=== PATIENT | male | born 1990 | race Caucasian/White ===

== ENCOUNTER 2017-06-16 11:03 | Emergency (ER) | payer SELFPAY ==
[2017-06-16 11:05] VITALS: BP 116/76; PULSE 54; RESP 17; TEMP 36.4; O2SAT 99; BMI 19.8
[2017-06-16] MEDS: 0.9% Normal Saline 1,000 ML 1000 ML IV (11:37)
[2017-06-16] MEDS: Ondansetron 4 MG/2 ML Vial IV (11:37)
[2017-06-16 11:42] LABS: Absolute Lymphocyte Count 1.78 X10^3/ul (0.83-4.51); Absolute Neutrophil Count 2.5 X10^3/uL (2.0-7.7); Basophil# 0.05 X10^3/uL; Eosinophil# 0.17 X10^3/uL; Eosinophils% 3.4 % (0-5); Hematocrit 42.4 % (40-54); Hemoglobin 14.5 g/dl (13.0-16.5); Lymphocyte # 1.78 X10^3/ul (4.0); Mean Corp Hgb Conc 34.2 g/gl (32-36); Mean Corpuscular Hgb 31.5 pg (27.0-32.0); Mean Corpuscular Volume 92.2 fL (80-94); Mean Platelet Vol. 9.8 fl (6.2-12.0); Monocyte# 0.49 X10^3/uL; Monocyte% 9.9 % (0-10); Neutrophil # 2.45 X10^3/uL (2.7-7.7); Neutrophil % 49.5 % (47-70); Platelet Count 198 K/mm3 (150-450); RBC Distribution Width CV 13.1 % (11.6-14.6); RBC Distribution Width SD 43.3 fl (35.1-43.9)
[2017-06-16 11:43] LABS: POSITIVE COUNT NO; POSITIVE DIFFERENTIAL NO; POSITIVE MORPHOLOGY NO
--- NOTE | 2017-06-16 11:45 | RAD_ITS ---
STUDY: X-RAY - ACUTE ABDOMINAL SERIES REASON FOR EXAM: Male, 27 years old. Nausea and vomiting. TECHNIQUE: Single view of the chest. Supine, and erect view(s) of the abdomen were obtained. COMPARISON: None. FINDINGS: The lungs are clear and expanded. Normal size heart. Normal mediastinum and elvira. Normal visualized pulmonary arteries. Normal visualized aortic arch and descending thoracic aorta. There is an abundance of fecal material throughout the colon. The soft tissue structures of the abdomen and pelvis are unremarkable. Normal visualized osseous structures. RAD/Acute Abdomen Inc Chest IMPRESSION: Moderate amount of fecal material is seen in the colon. Electronically Signed: Adi Porter MD at 12:43 EDT Tel [phone], Service support ,
[2017-06-16 11:54] LABS: ALB/GLOB Ratio 1.3 RATIO (0.9-2.4); AST(SGOT) 15 U/L (15-37); Alanine Aminotransfer ALT/SGPT 21 U/L (16-61); Albumin, Serum 4.4 g/dL (3.2-5.0); Alkaline Phosphatase 59 U/L (45-117); Anion Gap 6 (5-15); BUN 16 mg/dL (7-18); BUN/Creat Ratio 18.9 RATIO (10-20); Calcium,Total 8.8 mg/dL (8.5-10.1); Chloride 106 mmol/L (98-107); Creatinine, Serum 0.85 mg/dL (0.70-1.30); EST Glomerular Filtration Rate 117 mL/min (>60); Est Glom Filt Rate - Afr Amer 142 mL/min (>60); Estimated Creatinine Clearance 114.06 ml/min; Globulin 3.3 g/dL (2.2-4.2); Glucose 100 mg/dL (74-106); Protein, Total 7.7 g/dL (6.4-8.2); Sodium Level 141 mmol/L (136-145)
--- NOTE | 2017-06-16 12:43 | ED.DCSUM_ITS ---
- ER Visit Summary Date of Service: 06/16/17 Chief Complaint: Nausea vomiting and diarrhea History of Present Illness: The patient is a 27 M presenting for evaluation secondary nausea vomiting and diarrhea. Patient states that for approximately last week he has been having generalized malaise. Initially started with a cold that lasted about 6 days. Patient states however for the last 3 days he has been having nausea and vomiting that has been giving him difficulty with keeping down even liquids. He also states that he has been having loose watery diarrhea. Patient states that his emesis and nonbloody nonbilious, diarrhea is non-mucousy nonbloody. Denies any recent antibiotic use or any recent travel. Patient states that he has a mild amount of dyspnea as he feels like he has a tough time taking a deep breath. He endorses chills associated with this. Review of systems otherwise negative. Patient has no history of abdominal surgeries no past medical history. Physical Examination: Vital signs are within normal limits, patient is afebrile. General: Patient is well-nourished well-developed and in no acute distress. Head: Normocephalic, atraumatic Eyes: Pupils equal round and reactive bilaterally, extra occular motion intact bialterally, no evidence of scleral icterus or conjunctival pallor ENT: Moist mucous membranes Neck: Supple, no lymphadenopathy, no JVD, no meningismus CVS: Heart regular rate and rhythm, no murmurs, rubs or gallops, radial pulses 2 + bilaterally Resp: Respirations nondistressed, lung sounds clear bilaterally Abdomen: Soft, nontender, nondistended, no palpable masses, normal bowel sounds Back: Nontender Extremities: Nontender, atraumatic, active full range of motion, no peripheral edema Skin: warm, no rashes, no petechia Neuro: Alert and oriented x 4, CN 2-12 intact, no lateralizing neurological defecits Psyc: Normal affect Test Results: CBC unremarkable, CMP also unremarkable, abdominal x-ray with chest series shows a nonobstructive nonspecific bowel gas pattern and no evidence of acute cardiopulmonary pathology per my personal review Emergency Department Course and Treatment: Patient presented for evaluation secondary to nausea vomiting diarrhea generalized malaise and a mild amount shortness of breath. Given the patient's complaints shortness of breath and the fact that his symptoms of been going on for a week workup was obtained. He was given a liter normal saline Zofran. CBC chemistry liver profile and abdominal x-ray with chest were found to be negative. Patient's presentation at this point seems consistent with gastroenteritis will be discharged with supportive therapy. Patient was given a primary care doctor from the follow-up list Disposition: Discharge Impression: 1. Gastroenteritis This note was generated with [employer] dictation software. It may contain incorrect words, spelling, and punctuation that were not noted in review of the chart prior to signing ED Disposition - Plan for ED Patient: Disposition: Home or Assisted Living Chief Complaint: Nausea/Vomiting/Diarrhea Diagnosis: Gastroenteritis Instructions: ED Gastroenteritis Viral Prescriptions: Ondansetron [Zofran Odt] 4 mg PO Q8H PRN PRN #10 tab PRN Reason: Nausea Referrals: Juan Navarro DO [STAFF PHYSICIAN] - 3-5 Days if not improving
== END 2017-06-16 13:04 | disposition home or self-care (01) ==
PROVIDERS: Emergency Provider Emergency Medicine
DX: K52.9 Noninfective gastroenteritis and colitis, unspecified (principal); R06.00 Dyspnea, unspecified; Z72.0 Tobacco use
CPT/HCPCS: 74022; 80053; 85025; 96361; 96374; 99282; J7030; A4216; J2405

== ENCOUNTER 2017-07-26 09:52 | Emergency (ER) | payer SELFPAY ==
[2017-07-26 09:53] VITALS: BP 122/70; PULSE 64; RESP 16; TEMP 36.3; O2SAT 100; BMI 19.2
--- NOTE | 2017-07-26 10:06 | ED.VIS.GEN ---
History of Present Illness Chief Complaint: Bite Informant: Patient Onset: Today, Hours - 1 Context: Sudden Onset - trying to break up 2 of his dogs from fighting over food, got bit Timing: Continuous Quality: pain/sore Location: left hand, right thigh Current Severity: Severe Maximum Severity: Severe Worsened by: moving hand/fingers Relieved by: remaining still Associated Symptoms: no numb/tingling, no other injury Narrative: Last tetanus 6-7 years ago. Right-hand dominant. Past Medical History - Allergies and Home Meds Allergies/Adverse Reactions: Allergies No Known Allergies Allergy (Verified 07/26/17 09:56) Home Medications: Home Medications Medication Instructions Recorded Ondansetron [Zofran Odt] 4 mg PO Q8H PRN PRN #10 tab 06/16/17 Amox/Clavulanate Tablet [Augmentin 875 mg PO Q12H #10 tab 07/26/17 Tablet] Hydrocodone Bitart/Apap 5-325 1 tab PO Q4H PRN PRN 2 Days #10 tab 07/26/17 [Dinuba 5MG-325MG] Primary Care Physician: Care Physician,No Primary [Primary Care Provider] - Past Medical History: None Lives: Spouse/ Significant Other Smoking Status: Current every day smoker Drugs: None Review of Systems All systems negative except as indicated Musculoskeletal: Reports: Extremity Pain Skin: Reports: Wounds Physical Exam Vital Signs/Narrative: Vital Signs Temp Pulse Resp BP Pulse Ox 07/26/17 09:53 97.3 F L 64 16 122/70 H 100 Inital Vital Signs reviewed: Yes General: Well nourished, Well developed Head: Normocephalic, Atraumatic Extremities: Tenderness - diffuse left hand; anterior right thigh soft tissues at laceration Skin: Normal color, No rash, Trauma - Right thigh: 8 cm abrasion, approximately 1.5 cm of it is a partial-thickness laceration at the medial aspect. No subcutaneous tissues visible. Left hand: Multiple superficial-appearing puncture wounds from teeth, the deepest one appears to be in the thenar eminence where there is a 1.5 cm partial-thickness laceration with some minor bleeding that is nonpulsatile. All FDS/FDP tendon function intact. Full range of motion of thumb, limited at extremes due to pain, but able to oppose and perform all flexion/extension maneuvers without difficulty, including abduction/abduction. All extensors intact of fingers, including the long finger, where there is a puncture close to the extensor tendon. No tendons are able to be seen within the wound. All of the wounds are very small. Neurological: Alert, Oriented x3, Cranial nerves II-XII grossly intact, Normal Strength, Normal Sensation, Normal Gait Psychological: Normal affect Diagnostic/Tx/Re-eval - Medical Decision Making He has no medication allergies, will be placed on Augmentin for infection prophylaxis given his hand involvement with puncture wounds. They will be cleansed thoroughly and dressed with bacitracin here. I do not think any of these wounds, including the thenar eminence of the left hand or the right thigh, need repair. It will be very reasonable to let these heal by secondary intent. Especially because repairing primarily will increase the chance of infection. Discussed thoroughly with the patient and his significant other, they are comfortable with that plan. I do not think he needs a tetanus update having had one 6 or 7 years ago. ED Disposition - Plan for ED Patient: Disposition: Home or Assisted Living Chief Complaint: Bite Diagnosis: Dog bite of multiple sites of left hand and fingers, Dog bite of right thigh without complication Instructions: ED Bite Dog Prescriptions: Hydrocodone Bitart/Apap 5-325 [Dinuba 5MG-325MG] 1 tab PO Q4H PRN PRN 2 Days #10 tab PRN Reason: Pain Amox/Clavulanate Tablet [Augmentin Tablet] 875 mg PO Q12H #10 tab Referrals: Blayne Pablo MD [STAFF PHYSICIAN] - 3-5 Days if not improving ()
--- NOTE | 2017-07-26 10:15 | ED.DCSUM_ITS ---
History of Present Illness Chief Complaint: Bite Informant: Patient Onset: Today, Hours - 1 Context: Sudden Onset - trying to break up 2 of his dogs from fighting over food , got bit Timing: Continuous Quality: pain/sore Location: left hand, right thigh Current Severity: Severe Maximum Severity: Severe Worsened by: moving hand/fingers Relieved by: remaining still Associated Symptoms: no numb/tingling, no other injury Narrative: Last tetanus 6-7 years ago. Right-hand dominant. Past Medical History - Allergies and Home Meds Allergies/Adverse Reactions: Allergies No Known Allergies Allergy (Verified 07/26/17 09:56) Home Medications: Home Medications Medication Instructions Recorded Ondansetron [Zofran Odt] 4 mg PO Q8H PRN PRN #10 tab 06/16/17 Amox/Clavulanate Tablet [Augmentin 875 mg PO Q12H #10 tab 07/26/17 Tablet] Hydrocodone Bitart/Apap 5-325 1 tab PO Q4H PRN PRN 2 Days #10 tab 07/26/17 [Sterling 5MG-325MG] Primary Care Physician: Care Physician,No Primary [Primary Care Provider] - Past Medical History: None Lives: Spouse/ Significant Other Smoking Status: Current every day smoker Drugs: None Review of Systems All systems negative except as indicated Musculoskeletal: Reports: Extremity Pain Skin: Reports: Wounds Physical Exam Vital Signs/Narrative: Vital Signs Temp Pulse Resp BP Pulse Ox 07/26/17 09:53 97.3 F L 64 16 122/70 H 100 Inital Vital Signs reviewed: Yes General: Well nourished, Well developed Head: Normocephalic, Atraumatic Extremities: Tenderness - diffuse left hand; anterior right thigh soft tissues at laceration Skin: Normal color, No rash, Trauma - Right thigh: 8 cm abrasion, approximately 1.5 cm of it is a partial-thickness laceration at the medial aspect. No subcutaneous tissues visible. Left hand: Multiple superficial-appearing puncture wounds from teeth, the deepest one appears to be in the thenar eminence where there is a 1.5 cm partial-thickness laceration with some minor bleeding that is nonpulsatile. All FDS/FDP tendon function intact. Full range of motion of thumb, limited at extremes due to pain, but able to oppose and perform all flexion/extension maneuvers without difficulty, including abduction/ abduction. All extensors intact of fingers, including the long finger, where there is a puncture close to the extensor tendon. No tendons are able to be seen within the wound. All of the wounds are very small. Neurological: Alert, Oriented x3, Cranial nerves II-XII grossly intact, Normal Strength, Normal Sensation, Normal Gait Psychological: Normal affect Diagnostic/Tx/Re-eval - Medical Decision Making He has no medication allergies, will be placed on Augmentin for infection prophylaxis given his hand involvement with puncture wounds. They will be cleansed thoroughly and dressed with bacitracin here. I do not think any of these wounds, including the thenar eminence of the left hand or the right thigh , need repair. It will be very reasonable to let these heal by secondary intent. Especially because repairing primarily will increase the chance of infection. Discussed thoroughly with the patient and his significant other, they are comfortable with that plan. I do not think he needs a tetanus update having had one 6 or 7 years ago. ED Disposition - Plan for ED Patient: Disposition: Home or Assisted Living Chief Complaint: Bite Diagnosis: Dog bite of multiple sites of left hand and fingers, Dog bite of right thigh without complication Instructions: ED Bite Dog Prescriptions: Hydrocodone Bitart/Apap 5-325 [Sterling 5MG-325MG] 1 tab PO Q4H PRN PRN 2 Days #10 tab PRN Reason: Pain Amox/Clavulanate Tablet [Augmentin Tablet] 875 mg PO Q12H #10 tab Referrals: Blayne Pablo MD [STAFF PHYSICIAN] - 3-5 Days if not improving ()
[2017-07-26] MEDS: HYDROcodone Bitartrate/Apap 5/325 Tablet PO (10:21)
[2017-07-26 11:02] VITALS: BP 124/77; PULSE 68; RESP 15; O2SAT 99
== END 2017-07-26 11:03 | disposition home or self-care (01) ==
PROVIDERS: Emergency Provider Emergency Medicine
DX: S60.572A Other superficial bite of hand of left hand, initial encounter (principal); S60.479A Other superficial bite of unspecified finger, initial encounter; S70.371A Other superficial bite of right thigh, initial encounter; W54.0XXA Bitten by dog, initial encounter; Y93.9 Activity, unspecified; Y92.9 Unspecified place or not applicable
CPT/HCPCS: 99283

== ENCOUNTER 2020-04-28 11:38 | Emergency (ER) | payer MEDICAID, SELFPAY ==
[2020-04-28 11:40] VITALS: BP 118/61; PULSE 54; RESP 16; TEMP 37; O2SAT 97; BMI 19.9
--- NOTE | 2020-04-28 12:00 | RAD_ITS ---
STUDY: X-RAY CHEST REASON FOR EXAM: Male, 29 years old. COUGH, FEVER STARTED THIS MORNING -- PT''S FATHER JUST YESTERDAY AND HAD COVID TECHNIQUE: Single AP portable view of the chest. COMPARISON: 06/16/2017 FINDINGS: The lungs are clear and expanded. There is no demonstrated pleural abnormality. Normal size heart. Normal mediastinum and elvira. Normal visualized pulmonary arteries. Normal visualized aortic arch and descending thoracic aorta. Normal visualized thoracic spine. Normal visualized ribs, clavicles, and shoulders. There is no demonstrated abnormality of the visualized soft tissue structures of the upper abdomen. RAD/Chest 1 View (Portable) IMPRESSION: Normal x-ray examination of the chest. Electronically Signed: Porfirio Angelo MD at 12:45 EST Tel , Service support ,
[2020-04-28] MEDS: Ondansetron ODT 4 MG Tablet PO (12:14)
[2020-04-28 12:16] VITALS: O2SAT 100
--- NOTE | 2020-04-28 12:42 | ED.VISSUMM ---
- ER Visit Summary Date of Service: 04/28/20 Chief Complaint: Fever, cough History of Present Illness: The patient is a 29 M with no primary care physician. He reports that his father from [place] yesterday. He had been at home with the patient and ill for quite some time prior to coming to the hospital. Patient was feeling well until today when he developed fever, chills, cold sweats. Reports that he has a cough that comes and goes. He has shortness of breath with coughing only. He is not short of breath diverticulation. Has been nausea and had dry heaves. He has a headache is 4-10 severity that he describes as sharp. Physical Examination: Vitals: Stable. Afebrile. General: Well-nourished and well-developed. Head: Normocephalic atraumatic. Neck: Supple, no lymphadenopathy. No JVD. Nontender. Cardiovascular: Regular rate and rhythm. No murmurs. Respiratory: No respiratory distress. Clear to auscultation bilaterally. Abdominal: Soft, nontender, nondistended, normal bowel sounds. No guarding, rebound, or peritoneal signs. Back: Nontender. Extremities: Nontender, no edema. Skin: Normal color, no rash. Neurologic: Alert and oriented ?3. Cranial nerves II through XII are intact. Normal strength and sensation. Psych: Normal affect. Test Results: Chest x-ray shows no acute disease. COVID-19 rapid antigen is negative. Emergency Department Course and Treatment: Patient was treated with Zofran. He refused an IV. Treatment Plan: Patient will be discharged with Covid precautions I suspect that this is a false negative or it is too early to be positive. He is instructed to quarantine for the next 2 weeks. Instructed to follow-up with Andrzej Ceja in 10 to 14 days if not improving. Return to the emergency department for any worsening symptoms. Disposition: To home in improved and stable condition. Impression: 1. URI. 2. COVID-19 exposure. This note was generated with [employer] dictation software. It may contain incorrect words, spelling, and punctuation that were not noted in review of the chart prior to signing ED Disposition - Plan for ED Patient: Instructions: Preventing the Spread of Infection Understanding Isolation Procedures, Coronavirus Disease 2019 (COVID-19): Caring for Yourself or Others Prescriptions: Ondansetron [Zofran Odt] 4 mg PO Q8H PRN PRN #10 tablet PRN Reason: Nausea Referrals: Juan Hays MD [STAFF PHYSICIAN] - 10-14 Days if not better
== END 2020-04-28 13:08 | disposition home or self-care (01) ==
LOC: ED 13:03
PROVIDERS: Emergency Provider Emergency Medicine; PCP Family Medicine
DX: J06.9 Acute upper respiratory infection, unspecified (principal); Z20.822 Contact with and (suspected) exposure to COVID-19; F17.200 Nicotine dependence, unspecified, uncomplicated
CPT/HCPCS: 71045; 87426; 99283

== ENCOUNTER 2020-07-06 12:08 | Emergency (ER) | payer MEDICAID, SELFPAY ==
[2020-07-06 12:09] VITALS: BP 109/71; PULSE 81; RESP 14; TEMP 35.9; O2SAT 99; BMI 31.4
--- NOTE | 2020-07-06 12:18 | RAD_ITS ---
STUDY: X-RAY - LEFT ANKLE REASON FOR EXAM: Male, 30 years old. Trauma. Pain. TECHNIQUE: 3 view(s) of the ankle. COMPARISON: None. FINDINGS: There is no evidence of fracture or dislocation. There are no significant degenerative changes. There are no radiodense foreign bodies. RAD/Ankle min 3 Views IMPRESSION: No fracture or dislocation. Electronically Signed: Dallas De La Vega MD at 13:07 EDT Tel , Service support ,
--- NOTE | 2020-07-06 12:18 | ED.VIS.GEN ---
History of Present Illness Chief Complaint: Lower Extremity Injury Informant: Patient Onset: Yesterday Context: Sudden Onset Timing: Continuous Quality: Pain Location: Medial left ankle Current Severity: Mild Maximum Severity: Severe Worsened by: Weightbearing Relieved by: Elevation and rest Associated Symptoms: None Narrative: Patient is a 30-year-old male who presents with injury to his left ankle. He sustained blunt trauma against a weight yesterday. He states he had pain instantaneously. He now has pain if he bears weight. He localizes the pain to the medial malleolus left ankle. He believes he fractured the ankle when he was in high school. He denies paresthesia, anesthesia or motor weakness. Prior similar symptoms: No Recent Illness/Hospitalization: No - Past Medical History (1) No significant past medical history Status: Acute Past Medical History - Allergies and Home Meds Allergies/Adverse Reactions: Allergies No Known Allergies Allergy (Verified 07/06/20 12:09) Primary Care Physician: Juan Hays MD [Primary Care Provider] - Surgical History: no surgical history Lives: Spouse/ Significant Other Smoking Status: Current every day smoker Alcohol: Rare Drugs: None Review of Systems Musculoskeletal: Reports: Swelling, Extremity Pain. Denies: Myalgias, Arthralgias Skin: Denies: Rash, Wounds Neurological: Denies: Weakness, Parasthesia, Numbness Hematologic: Denies: Easy bruising, Easy bleeding Physical Exam Vital Signs/Narrative: Vital Signs Temp Pulse Resp BP Pulse Ox 07/06/20 12:09 96.7 F L 81 14 109/71 99 Inital Vital Signs reviewed: Yes General: Well nourished, Well developed, No Acute Distress Head: Normocephalic, Atraumatic Eyes: Perrl, EOMI Neck: Supple, Nontender Cardiovascular: Regular rate, Regular rhythm Respiratory: No distress Extremities: No edema, Tenderness - There is point tenderness over the medial malleolus. The left medial malleolus is significantly larger than the right. DP and PT pulse are palpable. There is no laxity with drawer testing.. Negative for: Nontender Skin: Normal color, No rash, Trauma Neurological: Alert, Oriented x3, Cranial nerves II-XII grossly intact, Normal Strength, Normal Sensation. Negative for: Normal Gait Psychological: Normal affect Diagnostic/Tx/Re-eval Chest X-Ray - ED: Read by ED Physician, Normal, Bony Structures, - - Three-view x-ray of the ankle was obtained and there is no fracture, subluxation dislocation or foreign body. There is no asymmetry of the joint spaces and specifically the mortise. 07/06/20 12:18 Ankle min 3 Views [RAD] Stat - Medical Decision Making X-ray of the ankle was obtained to evaluate for fracture versus contusion. ED Disposition - Plan for ED Patient: Disposition: Home or Assisted Living Diagnosis: Contusion of left ankle, initial encounter Instructions: ED Contusion, Lower Extremity Prescriptions: Naproxen [Naprosyn] 500 mg PO BID #14 tablet Prescription Printed Referrals: Juan Hays MD [Primary Care Provider] - 1 Week if not improving
[2020-07-06 12:40] VITALS: RESP 17
== END 2020-07-06 12:40 | disposition home or self-care (01) ==
PROVIDERS: Emergency Provider Emergency Medicine; PCP Family Medicine
DX: S90.02XA Contusion of left ankle, initial encounter (principal); W22.8XXA Striking against or struck by other objects, initial encounter; Y93.9 Activity, unspecified; Y92.9 Unspecified place or not applicable; F17.200 Nicotine dependence, unspecified, uncomplicated
CPT/HCPCS: 73610; 99282

== ENCOUNTER 2021-04-01 16:43 | Emergency (ER) | payer MEDICAID, SELFPAY ==
[2021-04-01 16:43] VITALS: BP 110/75; PULSE 76; RESP 16; TEMP 36.3; O2SAT 99; BMI 19.2
--- NOTE | 2021-04-01 17:01 | EX.ED.DYSGE1 ---
HPI History of Present Illness Chief Complaint: General Illness Detail of Chief Complaint: Not feeling well since yesterday Informant: patient Narrative Narrative: Patient presents to the emergency department complaint not feeling well since yesterday. He developed some mild congestion and a headache. Had a low-grade fever up to 101. Today he feels somewhat lightheaded especially this morning when he first stood up from bed. Complains of some mild body aches. Patient is concerned because he had COVID 9 months ago and his father of COVID and the symptoms remind him of when he had COVID last. Patient states that also his girlfriend and son with similar symptoms. Patient states that people of called off with COVID from work. Prior similar symptoms: Yes PFSH PFSH Medical History no medical history Home Medications ferrous sulfate, dried 160 mg PO DAILY 04/28/20 [History Last Taken Unknown] glucosamine HCl 500 mg PO DAILY 04/28/20 [History Last Taken Unknown] ondansetron 4 mg PO Q8H PRN PRN #10 tab 04/28/20 [Rx Last Taken Unknown] potassium 99 mg PO DAILY 04/28/20 [History Last Taken Unknown] naproxen 500 mg PO BID #14 tablet 07/06/20 [Rx Last Taken Unknown] Allergy/AdvReac Type Severity Reaction Status Date / Time No Known Allergies Allergy Verified 07/06/20 12:09 Social History Smoking Status: Current every day smoker tobacco type: cigarettes ROS ROS ED Constitutional Constitutional ED: Reports systems reviewed and no addt'l complaints, except as documented; Denies body ache(s), change in weight or chills Eyes Eyes: Denies acute decrease in peripheral vision, change in vision, double vision or loss of vision ENT ENT ED: Reports none; Denies ear pain, lip swelling, loss taste/smell, neck pain, otalgia or sore throat Cardiovascular Cardiovascular: Reports none; Denies abdominal pain, chest pain with activity, leg edema, lightheadedness, palpitations, rapid heart rate or syncope Respiratory/Chest Respiratory/Chest: Reports cough Gastrointestinal Gastrointestinal: Reports none; Denies abdominal pain, change in stool character, diarrhea, hematemesis, hematochezia, melena, rectal bleeding or vomiting Genitourinary Genitourinary ED: Reports none; Denies abdominal discomfort, anuria, dysuria, genital pain or polyuria Musculoskeletal Musculoskeletal: Reports myalgias Integumentary Reports none; Denies abscess or rash Neurologic Neurologic: Reports headache(s) Psychiatric Psychiatric: Reports systems reviewed and no addt'l complaints, except as documented and none; Denies behavioral changes, confusion, difficulty concentrating, hallucinations, suicidal ideation, tactile hallucinations or visual hallucinations Endocrine Endocrinology: Denies none, cold intolerance, excessive sweating, fatigue or heat intolerance Hematologic/Lymphatic Hematologic/Lymphatic: Reports none; Denies anemia, easy bleeding or easy bruising Allergic/Immunologic Allergic/Immunologic ED: Denies as per HPI, none, lip swelling, mouth swelling, throat swelling, tongue swelling or hives EXAM Physical Exam Const Vital Signs: 04/01/21 16:43 04/01/21 17:10 Temperature 97.3 F L 97.3 F L Temperature Source Temporal Temporal Pulse Rate 76 76 Respiratory Rate 16 16 Respiratory Effort Normal Non-Labored Blood Pressure 110/75 110/75 Blood Pressure Mean 86 86 Pulse Ox 99 99 Oxygen Delivery Method Room Air Room Air Positive well nourished and well developed General Appearance ED: well developed and NAD HEENT Reports TM's clear and moist mucous membranes normocephalic and atraumatic; Negative for trauma or tenderness Tympanic Membrane ED: Yes TM's clear Eyes PERRL and EOMs intact bilaterally General Eye ED: Negative for pale conjunctiva or scleral icterus Neck no lymphadenopathy, supple and no JVD General: Negative for tenderness Chest Wall inspection of chest normal and palpation of chest normal Chest: Negative for tenderness Resp normal respiratory effort and clear to auscultation bilaterally Effort and Inspection: Negative for respiratory distress or pain with movement Auscultation: Negative for rhonchi, wheezes or diminished lung sounds Cardio regular rate, regular rhythm, S1 normal heart sound, S2 normal heart sound and no murmurs Peripheral Pulses: pulses 2+ throughout GI normal to inspection, nondistended, normoactive bowel sounds, soft to palpation, non-tender, non-distended and no masses Back/Spine no CVA tenderness and no thoracic nor lumbar tenderness Extremity normal to inspection General Extremety ED: Negative for edema General Extremity: Negative for edema Neuro oriented x3, CN's II-XII intact bilaterally, no sensory deficits noted and gait normal Sensorium / Orientation: awake, alert, oriented to person, oriented to place and oriented to time Motor Exam: strength 5/5 throughout and strength abnormal Psych mental status grossly normal Skin no rashes or lesions noted and no wounds MDM MDM MDM Narrative Medical decision making narrative: Rapid COVID test was negative. I discussed with patient that given that he is only had symptoms for less than 24 hours and the Omicron variant is dominant he may not show a positive test for up to 2 to 3 days after symptom onset. I recommended that he test himself again in 2 to 3 days. Patient advised to return if increasing shortness of breath or condition should worsen anyway. Lab Data Attestation: I reviewed the patient's lab results. Discharge Plan Triage Chief Complaint: General Illness ED Provider: Se Mata Dx/Rx/DC Orders Clinical Impression: Viral URI Instructions: ED URI, Viral, No Abx (Adult) Prescriptions: No Action potassium 99 MG tablet 99 mg PO DAILY RF: 0 ferrous sulfate, dried 160 MG tablet extended release 160 mg PO DAILY RF: 0 glucosamine HCl 500 MG tablet 500 mg PO DAILY RF: 0 ondansetron 4 MG tablet 4 mg PO Q8H PRN PRN (Reason: Nausea) Qty: 10 RF: 0 naproxen 500 MG tablet 500 mg PO BID Qty: 14 RF: 0 Primary Care Provider: Juan Hays Referrals: Juan Hays MD [Primary Care Provider] - 5-7 Days Disposition Disposition: Home, Self Care
[2021-04-01 17:10] VITALS: BP 110/75; PULSE 76; RESP 16; TEMP 36.3; O2SAT 99
[2021-04-01 18:28] VITALS: TEMP 37.1; O2SAT 98
== END 2021-04-01 18:29 | disposition home or self-care (01) ==
PROVIDERS: Emergency Provider Emergency Medicine; PCP Family Medicine; Visit Provider Emergency Medicine
DX: J06.9 Acute upper respiratory infection, unspecified (principal); F17.210 Nicotine dependence, cigarettes, uncomplicated
CPT/HCPCS: 87426; 99282

== ENCOUNTER 2021-08-13 18:10 | Emergency (ER) | payer MEDICAID, SELFPAY ==
[2021-08-13 18:11] VITALS: BP 132/84; PULSE 94; RESP 18; TEMP 36.6; O2SAT 98; BMI 19.2
--- NOTE | 2021-08-13 18:29 | ED.VIS.DENTA ---
HPI History of Present Illness Chief Complaint: Dental Narrative Narrative: Patient presents with right upper second molar pain, he chipped his tooth about a month ago he has an appointment with dentistry in 2 weeks however he feels like there is some increased swelling and increased pain. No fevers chills. No difficulty swallowing. PFSH PFSH Medical History Alcohol abuse Former smoker Home Medications ferrous sulfate, dried 160 mg PO DAILY 04/28/20 [History Last Taken Unknown] glucosamine HCl 500 mg PO DAILY 04/28/20 [History Last Taken Unknown] ondansetron 4 mg PO Q8H PRN PRN #10 tab 04/28/20 [Rx Last Taken Unknown] potassium 99 mg PO DAILY 04/28/20 [History Last Taken Unknown] naproxen 500 mg PO BID #14 tablet 07/06/20 [Rx Last Taken Unknown] naproxen [Naprosyn] 500 mg PO BID #20 tab 08/13/21 [Rx Last Taken Unknown] penicillin V potassium 500 mg PO 4X/DAY #20 tab 08/13/21 [Rx Last Taken Unknown] Allergy/AdvReac Type Severity Reaction Status Date / Time No Known Allergies Allergy Verified 08/13/21 18:12 Surgical History History of tonsillectomy and adenoidectomy Social History Smoking Status: Current every day smoker tobacco type: cigarettes ROS ROS ED ROS Narrative Past medical history: Reviewed Medications: Reviewed Social history: Noncontributory Review of systems: All systems negative except as indicated General: No fever Eyes: No visual changes ENT: No upper airway congestion, normal voice Dental: As in HPI Neck: No neck pain Cardiovascular: No chest pain Respiratory: No shortness of breath or cough EXAM Physical Exam Narrative Exam Narrative: Physical exam General: Well nourished, Well developed, No Acute Distress Head: Normocephalic, Atraumatic Eyes: Conjunctiva not pale ENT: Moist mucous membranes Dental: There is a fracture of the right upper second molar, there is no periapical abscess. There is some swelling of the face. Normal soft palate and normal uvula and a normal voice. Neck: Supple, Nontender, No lymphadenopathy Cardiovascular: Regular rate, Regular rhythm Respiratory: No distress, CTA bilaterally Skin: Normal color, No rash Neurological: No facial droop Const Vital Signs: 08/13/21 18:11 Temperature 97.8 F Temperature Source Temporal Pulse Rate 94 Respiratory Rate 18 Blood Pressure 132/84 H Blood Pressure Mean 100 Pulse Ox 98 Oxygen Delivery Method Room Air MDM MDM MDM Narrative Medical decision making narrative: Patient does not have an abscess but he may have some infection since there is some swelling. We will treat with antibiotics. He has an appointment with dentistry and he can follow-up Discharge Plan Triage Chief Complaint: Dental ED Provider: Montrell Jasmine Dx/Rx/DC Orders Clinical Impression: Pain, dental, Dental caries Instructions: ED Dental Pain Prescriptions: New naproxen [Naprosyn] 500 mg tablet 500 mg PO BID Qty: 20 RF: 0 penicillin V potassium 500 mg tablet 500 mg PO 4X/DAY Qty: 20 RF: 0 No Action potassium 99 MG tablet 99 mg PO DAILY RF: 0 ferrous sulfate, dried 160 MG tablet extended release 160 mg PO DAILY RF: 0 glucosamine HCl 500 MG tablet 500 mg PO DAILY RF: 0 ondansetron 4 MG tablet 4 mg PO Q8H PRN PRN (Reason: Nausea) Qty: 10 RF: 0 naproxen 500 MG tablet 500 mg PO BID Qty: 14 RF: 0 Primary Care Provider: Juan Hays Referrals: Juan Hays MD [Primary Care Provider] - 2 Days Disposition Disposition: Home, Self Care
== END 2021-08-13 18:42 | disposition home or self-care (01) ==
PROVIDERS: Emergency Provider Emergency Medicine; PCP Family Medicine; Visit Provider Emergency Medicine
DX: S02.5XXA Fracture of tooth (traumatic), initial encounter for closed fracture (principal); K02.9 Dental caries, unspecified; F17.210 Nicotine dependence, cigarettes, uncomplicated; X58.XXXA Exposure to other specified factors, initial encounter

== ENCOUNTER 2021-08-29 15:08 | Emergency (ER) | payer MEDICAID, SELFPAY ==
[2021-08-29 15:09] VITALS: BP 119/72; PULSE 65; RESP 15; TEMP 36.7; O2SAT 97; BMI 19.2
--- NOTE | 2021-08-29 15:15 | RAD_ITS ---
STUDY: X-RAY - LEFT FOOT CLINICAL: Male, 31 years old. 5TH TOE INJURY TECHNIQUE: 3 view(s) of the foot. COMPARISON: None. FINDINGS: Normal talus, calcaneus, and tarsal bones. Normal visualized subtalar, talonavicular, calcaneocuboid, tarsal and tarsometatarsal articulations. Normal metatarsi. Normal metatarsophalangeal joint of the great toe. Normal tibial and fibular sesamoid bones. Normal interphalangeal joint of the great toe. Normal phalanges of the great toe. Normal second through fifth metatarsophalangeal joints. Normal interphalangeal joints and phalanges of the lesser toes. The soft tissue structures are unremarkable. RAD/Foot min 3 Views IMPRESSION: Normal x-ray examination of the foot. Electronically Signed: Adi Porter MD at 15:33 EDT ,
--- NOTE | 2021-08-29 16:49 | ED.VIS.LOWEX ---
HPI History of Present Illness Chief Complaint: Lower Extremity Injury Informant: patient Narrative Narrative: 31-year-old male states that he was walking down the hallway and accidentally kicked the wall with his left foot. He notes a large amount of ecchymosis and discomfort in the left fifth toe. He denies any other injuries. PFSH PFSH Medical History Alcohol abuse Former smoker Home Medications naproxen 500 mg tablet (Naprosyn) 500 mg PO BID #20 tabs 08/13/21 [Rx Last Taken Unknown] penicillin V potassium 500 mg tablet 500 mg PO 4X/DAY #20 tabs 08/13/21 [Rx Last Taken Unknown] hydrocodone-acetaminophen 5-325mg 5mg-325mg 1 tab PO Q6H PRN PRN Pain 3 days #10 TABLETS 08/29/21 [Rx Last Taken Unknown] Allergy/AdvReac Type Severity Reaction Status Date / Time No Known Allergies Allergy Verified 08/29/21 15:11 Surgical History History of tonsillectomy and adenoidectomy Social History Smoking Status: Former smoker ROS ROS ED Constitutional Constitutional ED: Denies chills or weight loss Eyes Eyes: Denies change in vision or diplopia ENT ENT ED: Denies ear pain, rhinorrhea or sore throat Cardiovascular Cardiovascular: Denies chest pain, orthopnea, palpitations or racing heartbeat Respiratory/Chest Respiratory/Chest: Denies cough, dyspnea or orthopnea Gastrointestinal Gastrointestinal: Denies abdominal pain, diarrhea, nausea or vomiting Genitourinary Genitourinary ED: Denies dysuria, hematuria or urinary frequency Musculoskeletal Musculoskeletal: Reports other Details: See HPI ; Denies arthralgias or myalgias Integumentary Denies abscess or rash Neurologic Neurologic: Denies headache(s) or weakness Psychiatric Psychiatric: Denies anxiety, depression, suicidal ideation or suicidal thoughts Endocrine Endocrinology: Denies polydipsia, polyphagia or polyuria Allergic/Immunologic Allergic/Immunologic ED: Denies mouth swelling, tongue swelling or urticaria EXAM Physical Exam Const Vital Signs: 08/29/21 15:09 Temperature 98.1 F Temperature Source Temporal Pulse Rate 65 Respiratory Rate 15 Blood Pressure 119/72 Blood Pressure Mean 87 Pulse Ox 97 Oxygen Delivery Method Room Air Positive well nourished and well developed General Appearance ED: well developed HEENT Reports normocephalic, head/scalp atraumatic and moist mucous membranes Eyes PERRL and EOMs intact bilaterally Neck no lymphadenopathy, supple and no JVD Resp normal respiratory effort and clear to auscultation bilaterally Cardio regular rate, regular rhythm and no murmurs GI normal to inspection, nondistended, normoactive bowel sounds and non-tender Palpation: soft Back/Spine no CVA tenderness and normal ROM Extremity Extremity Narrative: There is a significant a purple ecchymosis of the left fifth toe and onto the dorsum of the left foot. Tender to palpation. No gross deformity General Extremety ED: Negative for edema General Extremity: Negative for edema Neuro oriented x3 and CN's II-XII intact bilaterally Sensorium / Orientation: alert Motor Exam: strength 5/5 throughout Psych mental status grossly normal Mood & Affect: Negative for depressed or tearful Skin no rashes or lesions noted and no wounds MDM MDM MDM Narrative Medical decision making narrative: My interpretation of the plain films of the left foot is a nondisplaced fracture through the proximal phalanx of the left fifth toe. Patient will be placed in a postop shoe I will write for pain medication he is to follow with primary care in 2 weeks Radiography Diagnostic Testing: Clinical Impression(s) from Imaging Studies Foot X-Ray 08/29/21 15:15 IMPRESSION: Normal x-ray examination of the foot. Electronically Signed: Adi Porter MD at 15:33 EDT , ADDENDUM: 08/29/21 9836 IMPRESSION: undefined Discharge Plan Triage Chief Complaint: Lower Extremity Injury ED Provider: Kenney Ybarra Dx/Rx/DC Orders Clinical Impression: Fracture of toe of left foot Instructions: ED Fracture, Toe, Closed Prescriptions: New hydrocodone-acetaminophen [hydrocodone-acetaminophen] 1 TABLET tablet 1 tab PO Q6H PRN PRN (Reason: Pain) 3 Days Qty: 10 0RF No Action naproxen [Naprosyn] 500 mg tablet 500 mg PO BID Qty: 20 0RF penicillin V potassium 500 mg tablet 500 mg PO 4X/DAY Qty: 20 0RF Primary Care Provider: Juan Hays Referrals: Juan Hays MD [Primary Care Provider] - 1-2 Weeks Disposition Disposition: Home, Self Care
[2021-08-29 16:58] VITALS: PULSE 65; RESP 17; O2SAT 97
== END 2021-08-29 16:59 | disposition home or self-care (01) ==
PROVIDERS: Emergency Provider Emergency Medicine; PCP Family Medicine; Visit Provider Emergency Medicine
DX: S92.502A Displaced unspecified fracture of left lesser toe(s), initial encounter for closed fracture (principal); Z87.891 Personal history of nicotine dependence; X58.XXXA Exposure to other specified factors, initial encounter
CPT/HCPCS: 73630; 99283

== ENCOUNTER 2021-10-13 21:07 | Emergency (ER) | payer MEDICAID, SELFPAY ==
[2021-10-13 21:08] VITALS: BP 115/81; PULSE 64; RESP 16; TEMP 36.8; O2SAT 100; BMI 19.9
--- NOTE | 2021-10-13 21:35 | ED.VIS.DENTA ---
HPI History of Present Illness Chief Complaint: Dental Narrative Narrative: 31-year-old male presenting with dental pain on the right upper maxillary teeth. He states he was eating downey and had some food stuck in his tooth and when he tried to pick it out a piece of his tooth came out on the posterior aspect. Patient has not had any bleeding. No swelling of the gums. He has no trouble swallowing or breathing. Tongue is not swollen. He states that he had a tooth removed about a month ago and the area just around it. He was seen at [facility] for this. He states that he was unable to call them tonight due to the time. [facility] History Alcohol abuse Former smoker Home Medications amoxicillin 875 mg-potassium clavulanate 125 mg tablet 1 tab PO BID #20 tabs 10/13/21 [Rx Last Taken Unknown] naproxen 500 mg tablet (Naprosyn) 500 mg PO BID PRN pain #20 tabs 10/13/21 [Rx Last Taken Unknown] Allergy/AdvReac Type Severity Reaction Status Date / Time No Known Allergies Allergy Verified 10/13/21 21:11 Surgical History History of tonsillectomy and adenoidectomy Social History Smoking Status: Former smoker ROS ROS ED Constitutional Constitutional ED: Denies chills or weight loss Eyes Eyes: Denies change in vision or diplopia ENT ENT ED: Reports other Details: Dental pain ; Denies ear pain, rhinorrhea or sore throat Cardiovascular Cardiovascular: Denies chest pain, orthopnea, palpitations or racing heartbeat Respiratory/Chest Respiratory/Chest: Denies cough, dyspnea or orthopnea Gastrointestinal Gastrointestinal: Denies abdominal pain, diarrhea, nausea or vomiting Genitourinary Genitourinary ED: Denies dysuria, hematuria or urinary frequency Musculoskeletal Musculoskeletal: Reports other Details: See HPI ; Denies arthralgias or myalgias Integumentary Denies abscess or rash Neurologic Neurologic: Denies headache(s) or weakness Psychiatric Psychiatric: Denies anxiety, depression, suicidal ideation or suicidal thoughts Endocrine Endocrinology: Denies polydipsia, polyphagia or polyuria Allergic/Immunologic Allergic/Immunologic ED: Denies mouth swelling, tongue swelling or urticaria EXAM Physical Exam Const Vital Signs: 10/13/21 21:08 Temperature 98.2 F Temperature Source Temporal Pulse Rate 64 Respiratory Rate 16 Blood Pressure 115/81 H Blood Pressure Mean 92 Pulse Ox 100 Oxygen Delivery Method Room Air MDM MDM MDM Narrative Medical decision making narrative: Patient has dental pain and partial avulsion of the posterior aspect of his upper tooth in the right maxilla. Patient has dental follow-up with [facility] and previously was told he will have these tooth removed. Patient be covered with Augmentin and Naprosyn for pain. He was given a lidocaine swish and spit in the ED. Return cautions discussed. Impression: 1. Dental pain Lab Data Attestation: I reviewed the patient's lab results. Discharge Plan Triage Chief Complaint: Dental ED Provider: Nik Styles Dx/Rx/DC Orders Instructions: ED Dental Pain, ED Dental Trauma Prescriptions: New amoxicillin-pot clavulanate 875-125 mg tablet 1 tab PO BID Qty: 20 0RF naproxen [Naprosyn] 500 mg tablet 500 mg PO BID PRN (Reason: pain) Qty: 20 0RF Primary Care Provider: Juan Hays Referrals: Juan Hays MD [Primary Care Provider] - Disposition Disposition: Home, Self Care
[2021-10-13] MEDS: Naproxen 500 MG Tablet PO (22:03)
[2021-10-13] MEDS: Amox/Clavulanate 875 MG Tablet PO (22:03)
[2021-10-13 23:00] VITALS: BP 118/70; PULSE 70; RESP 15; O2SAT 99
== END 2021-10-13 23:02 | disposition home or self-care (01) ==
LOC: ED 21:38
PROVIDERS: Emergency Provider Student in an Organized Health Care Education/Training Program; PCP Family Medicine; Visit Provider Student in an Organized Health Care Education/Training Program
DX: K08.89 Other specified disorders of teeth and supporting structures (principal); Z87.891 Personal history of nicotine dependence; S03.2XXA Dislocation of tooth, initial encounter; X58.XXXA Exposure to other specified factors, initial encounter
CPT/HCPCS: 99283

== ENCOUNTER 2022-08-28 02:44 | Emergency (ER) | payer MEDICAID, SELFPAY ==
[2022-08-28 02:45] VITALS: BP 125/80; PULSE 81; RESP 16; TEMP 36.4; O2SAT 96; BMI 19.9
--- NOTE | 2022-08-28 02:55 | EX.ED.UPPERE ---
HPI History of Present Illness Chief Complaint: Upper Extremity Injury Narrative Narrative: 32-year-old male presenting with right hand pain. He states he had a mechanical fall where he slipped and fell with his third and fourth finger spread out on his right hand into the wall. Denies wrist pain. No lacerations or abrasions. He states he took some Tylenol and iced it a little bit and went to lay down and started throbbing. No numbness or tingling. PFSH PFSH Medical History Alcohol abuse Former smoker Home Medications naproxen 500 mg tablet (Naprosyn) 500 mg PO BID PRN pain #30 tabs 08/28/22 [Rx Last Taken Unknown] Allergy/AdvReac Type Severity Reaction Status Date / Time No Known Allergies Allergy Verified 08/28/22 02:48 Surgical History History of tonsillectomy and adenoidectomy Social History Smoking Status: Former smoker ROS ROS ED Constitutional Constitutional ED: Denies chills, fever(s) or sweats Eyes Eyes: Denies blurry vision or change in vision ENT ENT ED: Denies ear pain or sore throat Cardiovascular Cardiovascular: Denies chest pain, palpitations or racing heartbeat Respiratory/Chest Respiratory/Chest: Denies cough, dyspnea or sputum Gastrointestinal Gastrointestinal: Denies abdominal pain, constipation, diarrhea, nausea or vomiting Genitourinary Genitourinary ED: Denies dysuria, hematuria or urinary frequency Musculoskeletal Musculoskeletal: Reports other Details: Right hand pain ; Denies arthralgias, myalgias or neck pain Integumentary Denies abscess, Abrasions or rash Neurologic Neurologic: Denies headache(s), paresthesias or weakness Psychiatric Psychiatric: Denies anxiety, depression, suicidal ideation or suicidal thoughts Endocrine Endocrinology: Denies polydipsia or polyuria EXAM Physical Exam Const Vital Signs: 08/28/22 02:45 Temperature 97.5 F L Temperature Source Temporal Pulse Rate 81 Respiratory Rate 16 Blood Pressure 125/80 H Blood Pressure Mean 95 Pulse Ox 96 Oxygen Delivery Method Room Air Positive well nourished General Appearance ED: NAD HEENT Reports moist mucous membranes normocephalic and atraumatic Eyes PERRL Resp normal respiratory effort Cardio regular rate and regular rhythm Extremity Extremity Narrative: Tenderness to palpation between the third and fourth digits at the MCP. No bruising, swelling, bony deformity. Vascular intact brisk cap refill all 5 fingers. Neuro oriented x3 Sensorium / Orientation: alert Motor Exam: strength 5/5 throughout Psych mental status grossly normal MDM MDM MDM Narrative Medical decision making narrative: Patient medicated with Aleve. I will obtain x-rays of the right hand. Right hand x-ray on my interpretation shows a fracture of the proximal phalanx of the fourth digit which is intra-articular. There is no significant displacement or angulation. The radiologist interprets this and agrees. Patient placed in AlumaFoam splint with Josef wrapped. He is given follow-up with orthopedics. He offered [place] for pain but states he only wants NSAIDs. He was given Naprosyn. Pression: 1 mechanical fall 2. Fracture of the base of the right ring finger Radiography Diagnostic Testing: EXAM:? XR RIGHT HAND COMPLETE, 3 OR MORE VIEWS CLINICAL INDICATION:? pain TECHNIQUE:? Frontal, lateral and oblique views of the right hand. COMPARISON:? Right hand radiographs of 01/02/2015. FINDINGS: BONES/JOINTS:? There is disruption of the proximal articulating surface of the right finger proximal phalanx, with interruption of the articular surface and 1.5 mm impaction of the osteochondral fracture fragment, which causes slight step-off along the articular surface. The shaft and distal end of the ring finger proximal phalanx are intact. There is no dislocation. There is a well-healed boxer''s fracture of the distal right fifth metacarpal.? No sclerotic or destructive changes observed. SOFT TISSUES:? Mild soft tissue swelling surrounds the base of the ring finger proximal phalanx. No opaque foreign body. RAD/Hand Min 3 Views IMPRESSION: ? Acute intraarticular fracture at the base of the ring finger proximal phalanx. ? Well-healed boxer''s fracture of the right fifth metacarpal. ? Electronically Signed: Abel Talbot MD at 3:27 EDT , ? Discharge Plan Triage Chief Complaint: Upper Extremity Injury ED Provider: Nik Styles Dx/Rx/DC Orders Instructions: ED Fracture, Finger, Closed Prescriptions: New naproxen [Naprosyn] 500 mg tablet 500 mg PO BID PRN (Reason: pain) Qty: 30 0RF Primary Care Provider: Juan Hays Referrals: Juan Hays MD [Primary Care Provider] - Alfonso Baker MD [Med Staff - Active Staff] - As soon as possible Disposition Disposition: Home, Self Care
--- NOTE | 2022-08-28 03:00 | RAD_ITS ---
EXAM: XR RIGHT HAND COMPLETE, 3 OR MORE VIEWS CLINICAL INDICATION: pain TECHNIQUE: Frontal, lateral and oblique views of the right hand. COMPARISON: Right hand radiographs of 01/02/2015. FINDINGS: BONES/JOINTS: There is disruption of the proximal articulating surface of the right finger proximal phalanx, with interruption of the articular surface and 1.5 mm impaction of the osteochondral fracture fragment, which causes slight step-off along the articular surface. The shaft and distal end of the ring finger proximal phalanx are intact. There is no dislocation. There is a well-healed boxer''s fracture of the distal right fifth metacarpal. No sclerotic or destructive changes observed. SOFT TISSUES: Mild soft tissue swelling surrounds the base of the ring finger proximal phalanx. No opaque foreign body. RAD/Hand Min 3 Views IMPRESSION: Acute intraarticular fracture at the base of the ring finger proximal phalanx. Well-healed boxer''s fracture of the right fifth metacarpal. Electronically Signed: Abel Talbot MD at 3:27 EDT ,
[2022-08-28] MEDS: Naproxen 500 MG Tablet PO (03:14)
== END 2022-08-28 04:07 | disposition home or self-care (01) ==
PROVIDERS: Emergency Provider Student in an Organized Health Care Education/Training Program; PCP Family Medicine; Visit Provider Student in an Organized Health Care Education/Training Program
DX: S62.614A Displaced fracture of proximal phalanx of right ring finger, initial encounter for closed fracture (principal); Z87.891 Personal history of nicotine dependence; W01.198A Fall on same level from slipping, tripping and stumbling with subsequent striking against other object, initial encounter
CPT/HCPCS: 29130; 73130; 99283

== ENCOUNTER 2023-04-24 02:33 | Emergency (ER) | payer SELFPAY ==
[2023-04-24 02:37] VITALS: BP 104/88; PULSE 90; RESP 28; TEMP 36.9; O2SAT 100
[2023-04-24 02:40] VITALS: BP 104/88; PULSE 90; RESP 28; TEMP 36.9; O2SAT 100
--- NOTE | 2023-04-24 02:44 | CT_ITS ---
INDICATION: Right lower quadrant pain, fever, vomiting EXAMINATION: CT Abdomen And Pelvis W/ Contrast Injection TECHNIQUE: Helically acquired images were obtained of the abdomen and pelvis following IV contrast. 2-D reconstructions reviewed. A radiation dose optimization technique was used for this scan. IV Contrast dosage and agent: 100 cc Isovue-370 Oral contrast: None. COMPARISON: None. FINDINGS: LOWER CHEST: No acute findings within the imaged lung bases. Heart size within normal limits. LIVER: Homogeneous. No concerning lesion. GALLBLADDER AND BILIARY TREE: No calcified gallstones identified. No gallbladder wall edema demonstrated. No significant biliary ductal dilation. PANCREAS: No discrete mass or peripancreatic edema. SPLEEN: Normal size without concerning lesion. ADRENAL GLANDS: Unremarkable. KIDNEYS AND URETERS: Normal renal size and position. No perinephric edema or hydronephrosis. No concerning lesion. Simple appearing 1 cm cyst at lower pole left kidney requiring no additional follow-up. PERITONEUM: No significant free fluid. No peritoneal free air detected. RETROPERITONEUM: No retroperitoneal mass or pathologic fluid collection. BOWEL: Normal appendix posterior to cecum draped over right external iliac vessels. No bowel obstruction or significant bowel thickening. No focal inflammatory change. LYMPH NODES: No enlarged mesenteric or retroperitoneal lymph nodes. VESSELS: No acute findings. No abdominal aortic aneurysm. URINARY BLADDER: Unremarkable as visualized. REPRODUCTIVE ORGANS: No pelvic masses. ABDOMINAL WALL: No acute findings or significant hernia defect. BONES: Intact with no suspicious osseous lesion. CT/Abdomen/Pelvis W IV Cont ONLY IMPRESSION: No evidence of acute intra-abdominal abnormality. Electronically Signed: Juan Mayberry MD at 5:03 EST ,
--- NOTE | 2023-04-24 02:45 | EX.ED.DYSGE1 ---
HPI History of Present Illness Chief Complaint: Fever Narrative Narrative: 32-year-old male who denies significant past medical history presents with nausea and vomiting and low-grade fever. He states he has not been feeling well all day and may have been running low-grade fever, but has been taking DayQuil and NyQuil. He went to bed this evening and awoke at around midnight, 2-1/2 hours ago, with nausea and vomiting. He and his girlfriend states that he probably vomited at least 15 times without any blood in his emesis. He had a normal bowel movement a few hours ago. No diarrhea. He states whenever he tries to sip water, he will become nauseated and vomit. Additionally, while he is had crampy abdominal pain, he started having pain in the right lower quadrant of his abdomen as well. He denies any exacerbating or alleviating factors. States he feels that his whole body is somewhat cramping as well. PFSH PFSH Medical History Alcohol abuse Former smoker Home Medications naproxen 500 mg tablet (Naprosyn) 500 mg PO BID PRN pain #30 tabs 08/28/22 [Rx Last Taken Unknown] ondansetron 4 mg disintegrating tablet 4 mg PO Q6H PRN nausea and vomiting #20 tabs 04/24/23 [Rx Last Taken Unknown] Allergy/AdvReac Type Severity Reaction Status Date / Time No Known Allergies Allergy Verified 04/24/23 02:36 Surgical History History of tonsillectomy and adenoidectomy Social History Smoking Status: Former smoker ROS ROS ED ROS Narrative Constitutional: No fever, no chills. HEENT: No sore throat. No neck pain. No loss of vision. No rhinorrhea. Cardiovascular: No chest pain. No palpitations. No pedal edema. Respiratory: Occasional cough, no shortness of breath. Abdominal: Right lower quadrant abdominal pain. Positive nausea and vomiting, at least 15 nonbloody episodes. No diarrhea. Genitourinary: No dysuria. No hematuria. Musculoskeletal: No myalgias. No arthralgias. Neurologic: No headaches. No dizziness. No lightheadedness. Skin: No rash. No change in color. Psychiatric: No depression. No anxiety. EXAM Physical Exam Narrative Exam Narrative: Afebrile. Vital signs noted. HEENT: Normocephalic. Atraumatic. PERRL, EOMI. Neck soft and supple. No point tenderness or step off. Cardiovascular: Regular rate and rhythm. No murmurs, rubs, or gallops appreciated. Respiratory: No tachypnea. Lungs clear to auscultation bilaterally. Gastrointestinal: Abdomen soft, mild tenderness right lower quadrant without peritoneal signs with normoactive bowel sounds. No rebound or guarding. Neurological: Awake. Alert. Nonfocal, nonlateralizing. Skin: No rash. Normal color. No pallor. Musculoskeletal: No pedal edema. Full range of motion extremities. Const Vital Signs: 04/24/23 02:37 04/24/23 02:40 04/24/23 02:40 Temperature 98.4 F 98.4 F Temperature Source Oral Oral Pulse Rate 90 90 Respiratory Rate 28 H 28 H Respiratory Pattern Normal Blood Pressure 104/88 H 104/88 H Blood Pressure Mean 93 93 Pulse Ox 100 100 Oxygen Delivery Method Room Air Room Air MDM MDM MDM Narrative Medical decision making narrative: The differential diagnosis is viral syndrome versus appendicitis versus gastritis versus pancreatitis. Comprehensive workup was pursued. He was administered ondansetron and a bolus of normal saline 1 L intravenously. I reviewed his laboratory work and he has a normal white count of 5.8, hemoglobin normal at 13.4, platelet count normal at 192. Electrolyte panel shows potassium slightly low at 3.1. He was administered 20 mill equivalents intravenously. Glucose is appropriately elevated at 118 with a normal anion gap of 9. BUN normal at 12 with creatinine 1.0. Normal sodium of 141. AST is slightly low at 13 with ALT normal at 20. Lipase normal at 19. CT of the abdomen pelvis was obtained and reviewed and there is no evidence of an acute appendicitis, no acute intra-abdominal process. His respiratory swabs are reviewed and he is positive for influenza B. His girlfriend states that she was recently diagnosed with influenza B. I do feel that he is probably having gastrointestinal symptoms of his influenza B infection. At this point in time, I do not feel he requires admission. He feels improved upon repeat examination. He was written a prescription for 20 Zofran ODT's. He will keep himself hydrated and follow-up with his primary care provider. Disposition is discharged home in improved and stable condition. History & Record Review Discussion w/independent historian: Patient and Significant other Additional record(s) reviewed:: Prior ED visit Lab Data Attestation: I reviewed the patient's lab results. Labs: Laboratory Results - last 24 hr 04/24/23 02:55 WBC 5.8 RBC 4.44 L Hgb 13.4 Hct 39.8 L MCV 89.6 MCH 30.2 MCHC 33.7 RDW Std Deviation 40.7 RDW Coeff of Alex 12.4 Plt Count 192 MPV 9.2 Immature Gran % (Auto) 0.300 Neut % (Auto) 80.2 H Lymph % (Auto) 5.7 L [place] % (Auto) 12.8 H Eos % (Auto) 0.3 Baso % (Auto) 0.7 Absolute Neuts (auto) 4.6 Absolute Lymphs (auto) 0.33 L Nucleated RBC % 0 Sodium 141 Potassium 3.1 L Chloride 107 Carbon Dioxide 25.0 Anion Gap 9 BUN 12 Creatinine 1.00 Est GFR (MDRD) Af Amer 112 Est GFR (MDRD) Non-Af 93 BUN/Creatinine Ratio 12.0 Glucose 118 H Calcium 9.2 Total Bilirubin 1.30 H AST 13 L ALT 20 Alkaline Phosphatase 56 Total Protein 7.4 Albumin 4.5 Globulin 2.9 Albumin/Globulin Ratio 1.6 Lipase 19 Radiography Diagnostic Testing: Clinical Impression(s) from Imaging Studies Abdomen/Pelvis CT 04/24/23 02:44 IMPRESSION: No evidence of acute intra-abdominal abnormality. Electronically Signed: Juan Mayberry MD at 5:03 EST , Discharge Plan Triage Chief Complaint: Fever ED Provider: Neville Munoz Dx/Rx/DC Orders Clinical Impression: Influenza B, Nausea and vomiting, Abdominal pain, Hypokalemia Instructions: ED Influenza (Adult), ED Hypokalemia, ED Vomiting (Adult), ED Abdominal Pain Unkn Cause Male... Prescriptions: New ondansetron 4 mg tablet,disintegrating 4 mg PO Q6H PRN (Reason: nausea and vomiting) Qty: 20 0RF No Action naproxen [Naprosyn] 500 mg tablet 500 mg PO BID PRN (Reason: pain) Qty: 30 0RF Primary Care Provider: Juan Hays Referrals: Juan Hays MD [Primary Care Provider] - 3-5 Days if not improving Disposition Disposition: Home, Self Care
[2023-04-24 02:59] LABS: Absolute Lymphocyte Count 0.33 X10^3/uL (0.83-4.51); Absolute Neutrophil Count 4.6 X10^3/uL (2.0-7.7); Basophil# 0.04 X10^3/uL; Basophil% 0.7 % (0-1); Eosinophil# 0.02 X10^3/uL; Eosinophils% 0.3 % (0-5); Hematocrit 39.8 % (40-54); Hemoglobin 13.4 g/dL (13.0-16.5); Lymphocyte # 0.33 X10^3/ul (0.83-4.51); Lymphocyte % 5.7 % (19-41); Mean Corp Hgb Conc 33.7 g/dL (32-36); Mean Corpuscular Hgb 30.2 pg (27.0-32.0); Mean Corpuscular Volume 89.6 fL (80-94); Mean Platelet Vol. 9.2 fl (6.2-12.0); Monocyte# 0.74 X10^3/uL; Monocyte% 12.8 % (0-10); NRBC Flagged by Analyzer 0 % (0-5); Neutrophil # 4.63 X10^3/uL (2.7-7.7); Neutrophil % 80.2 % (47-70); POSITIVE DIFFERENTIAL YES; Platelet Count 192 K/mm3 (150-450); RBC Distribution Width CV 12.4 % (11.6-14.6); RBC Distribution Width SD 40.7 fl (35.1-43.9); Red Blood Count 4.44 M/mm3 (4.6-6.2); White Blood Count 5.8 K/mm3 (4.4-11.0)
--- OUTSIDE RECORDS SUMMARY | 2023-04-24 02:59 | XMS RPT_ITS | CCD ---
Author Name Unknown Address 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MANAGER CARDIOVASCULAR Service: ? Author Type: Nurse Practitioner Type: Progress Notes Filed: 04/08/2021 6:46 PM Note Text: Subjective HPI HPI Liban Amos is a 30 year old male who presents today for CC of cough, fever, h/a, st, body aches, st. This started 4 days ago, improving. Has tried otc medication for relief. Symptoms are worsened by nothing. Risk factors no known sick exposures. Denies c/p, sob, diarrhea, loss taste/smell, ear pain. Not vaccinated for covid. smoker. .Patient presents with: Head Congestion: headache, cough, sore throat, bodyaches and fever x 4 days PAST MEDICAL HISTORY Diagnosis Date - ADHD (attention deficit hyperactivity disorder) - Back pain 2007 fell off roller coaster - Exercise-induced asthma - Tobacco use disorder PAST SURGICAL HISTORY Procedure Laterality Date - ADENOIDECTOMY HX ALLERGIES Cats MEDICATIONS meloxicam (MOBIC) 7.5 mg tablet Take 1 tablet by mouth once daily. Take with food. pseudoephedrine-guaiFENesin (MUCINEX D) 60-600 mg per tablet Take 1 tablet by mouth every 12 hours as needed for Cold/Allergy Symptoms. albuterol HFA (PROAIR HFA) 90 mcg/actuation inhaler Inhale 2 Puffs as instructed every 4 hours as needed for Wheezing/Shortness of Breath. Atomoxetine (STRATTERA) 80 mg capsule Take 80 mg by mouth once daily. FAMILY HISTORY Problem Relation Age of Onset - Emphysema Brother - Hypertension Maternal Grandmother - other (ADHD [Other]) Father - other (ADHD [Other]) Brother Social History Tobacco Use - Smoking status: Current Every Day Smoker Packs/day: 0.50 Years: 2.00 Pack years: 1.00 - Smokeless tobacco: Never Used - Tobacco comment: started smoking 20yo Substance Use Topics - Alcohol use: No - Drug use: No ROS Objective Blood pressure 90/56, pulse 60, temperature 36.3 ?C (97.4 ?F), resp. rate 16, weight 68 kg (150 lb), SpO2 99 %. Physical Exam Constitutional: General: He is not in acute distress. Appearance: He is not toxic-appearing or diaphoretic. HENT: Head: Normocephalic and atraumatic. Mouth/Throat: Pharynx: Uvula midline. No pharyngeal swelling, oropharyngeal exudate, posterior oropharyngeal erythema or uvula swelling. Cardiovascular: Rate and Rhythm: Normal rate and regular rhythm. Heart sounds: Normal heart sounds, S1 normal and S2 normal. Pulmonary: Effort: Pulmonary effort is normal. Breath sounds: Normal breath sounds. Lymphadenopathy: Cervical: No cervical adenopathy. Right cervical: No superficial cervical adenopathy. Left cervical: No superficial cervical adenopathy. Neurological: Mental Status: He is alert and oriented to person, place, and time. Gait: Gait is intact. ASSESSMENT/PLAN: 1. Suspected COVID-19 virus infection - ICD9: V01.79, ICD10: Z20.822 Discussed quarantine, social distancing otc medications discussed Push fluids -If you experience chest pain/shortness of breath go to ER - COVID WITH FLUA+B, ROUTINE Agrees to plan Mychal Rush APRN.[facility] Summary Purpose Family History No Family History Records FoundNo Family History Records Found Advance Directives No Advanced Directives Records FoundNo Advanced Directives Records Found Additional Source Comments (unrecognized sect ion and content) No Status Records FoundNo Status Records Found INFORMATION SOURCE (unrecogn ized section and content) DATE CREATED AUTHOR AUTHOR'S ANGELESTERESE WHITNEY 06/01/2021 [facility] FOR RECORDS PERTAINING TO PATIENTS WHO ARE OR HAVE BEEN ENROLLED IN A CHEMICAL DEPENDENCY/SUBSTANCEABUSE PROGRAM, SOME INFORMATION MAY BE OMITTED. This clinical summary was aggregated from multiple sources. Caution should be exercised in using it in the provision of clinical care. This summary normalizes information from multiple sources, and as a consequence, information in this document may materially change the coding, format and clinical context of patient data. In addition, data may be omitted in some cases. CLINICAL DECISIONS SHOULD BE BASED ON THE PRIMARY CLINICAL RECORDS. [facility] [employer] [facility]. provides no warranty or guarantee of the accuracy or completeness of information in this document.
[2023-04-24] MEDS: Ondansetron 4 MG/2 ML Vial IV (03:05)
[2023-04-24] MEDS: 0.9% Normal Saline (1000mL) 1,000 ML 1000 ML IV (03:05)
[2023-04-24 03:20] LABS: ALB/GLOB Ratio 1.6 RATIO (0.9-2.4); AST(SGOT) 13 U/L (15-37); Alanine Aminotransfer ALT/SGPT 20 U/L (16-61); Albumin, Serum 4.5 g/dL (3.2-5.0); Alkaline Phosphatase 56 U/L (45-117); Anion Gap 9 (5-15); BUN 12 mg/dL (7-18); Calcium,Total 9.2 mg/dL (8.5-10.1); Chloride 107 mmol/L (98-107); EST Glomerular Filtration Rate 93 mL/min (>60); Est Glom Filt Rate - Afr Amer 112 mL/min (>60); Globulin 2.9 g/dL (2.2-4.2); Glucose 118 mg/dL (74-106); Lipase 19 U/L (13-75); Potassium 3.1 mmol/L (3.5-5.1); Protein, Total 7.4 g/dL (6.4-8.2); Sodium Level 141 mmol/L (136-145)
[2023-04-24] MEDS: Potassium Chloride 10mEq/100mL 10 MEQ/100 ML IV.SOLN. 100 MEQ IV BOLUS ×2 (04:15→05:12)
[2023-04-24 04:34] VITALS: RESP 18
== END 2023-04-24 06:17 | disposition home or self-care (01) ==
PROVIDERS: Emergency Provider Emergency Medicine; PCP Family Medicine; Visit Provider Emergency Medicine
DX: J10.1 Influenza due to other identified influenza virus with other respiratory manifestations (principal); R10.9 Unspecified abdominal pain; Z87.891 Personal history of nicotine dependence; E87.6 Hypokalemia; R11.2 Nausea with vomiting, unspecified
CPT/HCPCS: 74177; 80053; 83690; 85025; 87631; 96361; 96365; 96375; 99282; J7030; Q9967; A4216; J2405

== ENCOUNTER 2023-04-26 05:23 | Emergency (ER) | payer SELFPAY ==
[2023-04-26 05:24] VITALS: BP 92/78; PULSE 64; RESP 18; TEMP 36.8; O2SAT 98; BMI 19.1
[2023-04-26 05:28] VITALS: O2SAT 98
--- NOTE | 2023-04-26 06:02 | RAD_ITS ---
INDICATION: dyspnea EXAMINATION/TECHNIQUE: X-RAY - XR Chest 1 View COMPARISON: CR ChestFeb 2020 FINDINGS: LINES/DEVICES: None. LUNGS: Ill-defined groundglass opacities in the left lung base suggesting pneumonia. MEDIASTINUM AND CARDIOVASCULAR STRUCTURES: Cardiac silhouette not enlarged. Central airways and mediastinal contour are unremarkable. BONES AND SOFT TISSUES: Unremarkable. RAD/Chest 1 View (Portable) IMPRESSION: Left lower lobe pneumonia. Electronically Signed: Tita Arriaga MD at 7:51 EST ,
[2023-04-26] MEDS: Ipratropium/Albuterol Sulfate 3 ML AMPUL.NEB INHALATION (06:08)
[2023-04-26 06:09] VITALS: PULSE 81; RESP 16
[2023-04-26] MEDS: predniSONE 20 MG Tablet 60 MG PO (06:49)
--- OUTSIDE RECORDS SUMMARY | 2023-04-26 06:52 | XMS RPT_ITS | CCD ---
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 Name Role Phone [place] Attending Unava ilable [place] Primary Care Unava ilable [place] Admitting Unava ilable Results Test Name Value Interpretation Reference Range Facil ity Encounters Encounter Date Encounter Type Care Provider Facility Start: 02-12-2021 End: 02-12-2021 ambulatory [facility] Progress note 04-08-2021 Note Date & Type Note Facility 04-08-2021 Note HNO ID: [id number] Author: Mychal Rush APRN.REPRODUCTION MACHINE LOADER Service: ? Author Type: Nurse Practitioner Type: [...] FLUA+B, ROUTINE Agrees to plan Mychal Rush APRN.[facility] Summary Purpose Family History No Family History Records FoundNo Family History Records Found Advance Directives No Advanced Directives Records FoundNo Advanced Directives Records Found Additional Source Comments (unrecognized sect ion and content) No Status Records FoundNo Status Records Found INFORMATION SOURCE (unrecogn ized section and content) DATE CREATED AUTHOR AUTHOR'S ANGELESTERESE WHITNEY 06/01/2021 [facility] FOR RECORDS PERTAINING TO PATIENTS WHO [...] BE BASED ON THE PRIMARY CLINICAL RECORDS. [facility]. provides no warranty or guarantee of the accuracy or completeness of information in this document.
--- NOTE | 2023-04-26 06:59 | EX.ED.DYSGE1 ---
HPI History of Present Illness Chief Complaint: Shortness of Breath Informant: patient Narrative Narrative: Patient is a 32-year-old male who was recently seen in the ER and diagnosed with influenza B. He states that since being diagnosed he has now had bouts of congestion cough and shortness of breath. He states that he feels like he cannot get a full breath in . He states he used to have a albuterol inhaler to help with this but no longer does and with his persistent symptoms comes [facility] Medical History Alcohol abuse Former smoker Home Medications naproxen 500 mg tablet (Naprosyn) 500 mg PO BID PRN pain #30 tabs 08/28/22 [Rx Last Taken Unknown] ondansetron 4 mg disintegrating tablet 4 mg PO Q6H PRN nausea and vomiting #20 tabs 04/24/23 [Rx Last Taken Unknown] albuterol sulfate 90 mcg/actuation aerosol inhaler (Ventolin HFA) 2 puff inhalation Q4H PRN PRN Wheezing/SOB #1 device 04/26/23 [Rx Last Taken Unknown] prednisone 20 mg tablet 40 mg (2 x 20 mg) PO DAILY 5 days #10 tabs 04/26/23 [Rx Last Taken Unknown] Allergy/AdvReac Type Severity Reaction Status Date / Time No Known Allergies Allergy Verified 04/24/23 02:36 Surgical History History of tonsillectomy and adenoidectomy Social History Smoking Status: Former smoker [facility] ED Constitutional Constitutional ED: Reports chills and fever(s) ENT ENT ED: Reports rhinorrhea and sore throat Cardiovascular Cardiovascular: Denies chest pain Respiratory/Chest Respiratory/Chest: Reports cough and dyspnea Gastrointestinal Gastrointestinal: Denies abdominal pain, diarrhea, nausea or vomiting Genitourinary Genitourinary ED: Denies dysuria Musculoskeletal Musculoskeletal: Reports myalgias Integumentary Denies rash Neurologic Neurologic: Reports headache(s) Psychiatric Psychiatric: Reports anxiety Hematologic/Lymphatic Hematologic/Lymphatic: Denies easy bleeding or easy bruising EXAM Physical Exam Const Vital Signs: 04/26/23 05:24 04/26/23 05:28 04/26/23 06:09 Temperature 98.3 F Temperature Source Oral Pulse Rate 64 81 Respiratory Rate 18 16 Respiratory Effort Short of Breath Respiratory Depth Normal Respiratory Pattern Normal Normal Blood Pressure 92/78 Blood Pressure Mean 82 Pulse Ox 98 Oxygen Delivery Method Room Air Room Air Positive well nourished and well developed General Appearance ED: well developed; Negative for pallor HEENT HEENT Narrative: There is cobblestoning the posterior pharynx consistent with sinus drainage without airway edema or compromise No tongue or lip swelling No signs of infection noted in the posterior pharynx Eyes PERRL and EOMs intact bilaterally Neck supple Neck Narrative: No nuchal rigidity or meningeal signs Chest Wall palpation of chest normal Chest Narrative: No bony deformity or crepitus noted Resp normal respiratory effort Resp Narrative: Breath sounds are slight diminished throughout with diffuse expiratory wheeze but otherwise no nasal flaring retractions tachypnea or accessory muscle use Cardio regular rate and regular rhythm Extremity normal to inspection Extremity Narrative: No asymmetric edema no pitting edema negative Homans' sign bilaterally Neuro oriented x3, CN's II-XII intact bilaterally and no sensory deficits noted Sensorium / Orientation: alert Motor Exam: strength 5/5 throughout Psych Psych Narrative: Patient has a nervous/anxious affect Skin no rashes or lesions noted General Skin Exam: Negative for pallor MDM MDM MDM Narrative Medical decision making narrative: Patient presented to the ER with stable vitals satting 98 to 100% on room air with no increased work of breathing. He has known influenza B and differential diagnosis is bronchospasm secondary to this versus viral pneumonia versus pneumothorax versus pleural effusion. Based on his young age and my concern that this is cardiac in nature is low and I do not feel there is a need for troponin/blood work. Patient was given steroids and a breathing treatment based on his history and physical exam which should help improve his work of breathing and his sensation of shortness of breath. His chest x-ray question developing pneumonia in the left lower lobe but as he recently had influenza B this is viral pneumonia and does not need antibiotics. Therefore at this time as patient has stable vitals no need for supplemental oxygen and is no respiratory distress there is no need for further workup and he is otherwise safe for discharge. Radiography Diagnostic Testing: Clinical Impression(s) from Imaging Studies Chest X-Ray 04/26/23 06:02 IMPRESSION: Left lower lobe pneumonia. Electronically Signed: Tita Arriaga MD at 7:51 EST Reading Location ID and State: [facility] / [place] Tel , Service support , Chest x-ray as interpreted by the emergency medicine physician reveals haziness in the left lower lobe most likely atelectasis versus developing pneumonia Discharge Plan Triage Chief Complaint: Shortness of Breath ED Provider: Carlyle Villanueva Dx/Rx/DC Orders Clinical Impression: Influenza B, Dyspnea Instructions: ED Bronchospasm (Adult), ED Influenza (Adult) Prescriptions: New prednisone 20 mg tablet 40 mg PO DAILY 5 Days Qty: 10 0RF albuterol sulfate [Ventolin HFA] 90 mcg/actuation HFA aerosol inhaler 2 puff inhalation Q4H PRN PRN (Reason: Wheezing/SOB) Qty: 1 0RF No Action naproxen [Naprosyn] 500 mg tablet 500 mg PO BID PRN (Reason: pain) Qty: 30 0RF ondansetron 4 mg tablet,disintegrating 4 mg PO Q6H PRN (Reason: nausea and vomiting) Qty: 20 0RF Primary Care Provider: Juan Hays Referrals: Juan Hays MD [Primary Care Provider] - Activity Restrictions/Additional Instructions: If symptoms are consistent with bronchospasm/lung inflammation from influenza. This virus will typically last 5 to 10 days. Use the steroid as prescribed to reduce inflammation and the albuterol inhaler for bronchospasm and return to the ER should you have any further concerns Disposition Disposition: Home, Self Care Discharge Date/Time: 04/26/23 07:14
[2023-04-26 07:11] VITALS: BP 125/76; PULSE 64; RESP 15; O2SAT 98
== END 2023-04-26 07:14 | disposition home or self-care (01) ==
PROVIDERS: Emergency Provider Emergency Medicine; PCP Family Medicine; Visit Provider Emergency Medicine
DX: J10.00 Influenza due to other identified influenza virus with unspecified type of pneumonia (principal); Z87.891 Personal history of nicotine dependence; R06.00 Dyspnea, unspecified
CPT/HCPCS: 71045; 94640; 99282